=== PATIENT | male | born 1945 | race Caucasian/White ===

== ENCOUNTER 2018-07-05 05:24 | Inpatient (IN) | payer OTHER ==
[2018-06-21 13:03] LABS: URINE BILIRUBIN NEGATIVE (Negative); URINE BLOOD NEGATIVE (Negative); URINE CLARITY CLEAR; URINE COLOR YELLOW; URINE GLUCOSE-RANDOM* NEGATIVE (Negative); URINE KETONES NEGATIVE (Negative); URINE LEUKOCYTES-REFLEX NEGATIVE (Negative); URINE NITRITE-REFLEX NEGATIVE (Negative); URINE PROTEIN (DIPSTICK) NEGATIVE (Negative); URINE UROBILINOGEN 0.2 E.U./dl (0.2-1.0)
[2018-06-21 13:04] LABS: HEMOGLOBIN 16.7 gm/dL (14.0-18.0); MCH 33.2 pg (26.0-34.0); MCHC 34.9 g/dL (28.0-37.0); MCV 95.2 fL (80.0-100.0); RBC 5.04 mil/uL (4.50-6.00); RDW 12.8 % (10.5-14.5); WBC 8.2 thou/uL (4.0-11.0)
[2018-06-21 13:11] LABS: ALBUMIN 4.1 g/dL (3.4-5.0); POTASSIUM 5.3 mmol/L (3.5-5.1)
[2018-06-21 13:13] LABS: INR 1.1; PROTIME 11.8 Seconds (9.3-11.4)
[~2018-07-05] VITALS: Ht 188 cm; Wt 97.5 kg
--- NOTE | ~2018-07-05 | O ---
[facility] [place] [address] OPERATIVE REPORT Name: CHIRAG MURRAY Room #: 461-P [facility] IN M.R.#: [id number] Admission: 07/05/18 Attend Phys: Freddy Valentin MD Discharge: 07/06/18 Date of : 49 Report #: [id number] THIS REPORT FOR: //name// CC: Billie Trinikaris Freddy Valentin DATE OF SERVICE: 07/05/2018 PREOPERATIVE DIAGNOSIS: Left hip osteoarthritis. POSTOPERATIVE DIAGNOSIS: Left hip osteoarthritis. PROCEDURE: Left total hip arthroplasty. SURGEON: Freddy Valentin MD. CONCRETE SPREADER: None. ANESTHESIA: General endotracheal. IMPLANTS: [employer] size 15 high offset Synergy press fit stem, a size 58 R3 acetabular cup with one acetabular screw and a size 40+8 Oxinium head. ESTIMATED BLOOD LOSS: 50 mL. COMPLICATIONS: None. SPECIMENS: None. CONDITION UPON LEAVING THE OPERATING ROOM: Stable. INDICATIONS FOR PROCEDURE: The patient is a 72-year-old gentleman with severe left hip osteoarthritis. He has failed conservative measures for this and after discussion with him, he elected for left total hip arthroplasty. DESCRIPTION OF PROCEDURE: Risks, benefits, alternatives, complications were discussed in detail with the patient including but not limited to risk of anesthesia, risk of damage to nerves, arteries, blood vessels, risk for infection, bleeding, risk for continued hip pain, leg length discrepancy, instability and need for reoperation. Informed consent was obtained from the patient. The left hip was appropriately marked in the preoperative holding area. IV clindamycin was given for preoperative antibiotics. She was brought to the operating room and placed in supine position on operating room table. General anesthesia was induced without complication. She was then placed in the right lateral decubitus position with the left hip uppermost. Left hip and lower extremity were prepped and draped in normal sterile fashion. Timeout was [address] [address] OPERATIVE REPORT Name: CHIRAG MURRAY Alessandro Room #: 461-P [facility] IN [facility].#: [id number] Admission: 07/05/18 Attend Phys: Freddy Valentin MD Discharge: 07/06/18 Date of : 49 Report #: [id number] performed properly identifying the patient, procedure as well as the instrumentation and implants. All in the operating room were in agreement. Standard posterior approach to the hip was made with 10 blade through the skin. Dissection was taken down the fascia with Bovie cautery and Ordoñez elevator was used to clean off the fascia. Fresh #10 blade was used to make a fascial incision. This was taken proximally and distally with curved Velarde scissor. Charnley retractor was placed. Trochanteric bursa was taken down with Bovie cautery. Piriformis tendon was identified, tagged and taken down with Bovie. Short external rotators were also taken down with Bovie cautery. A 10 blade was then used to make a capsulotomy and capsule ends were tagged for later repair. Hip was dislocated and there was extensive osteoarthritic change of the femoral head. Femoral neck cut was made 1 cm proximal to lesser trochanter based on preoperative templating. The femoral head was removed. Deep acetabular retractors were placed and the labrum was removed sharply. Pulvinar was removed with Bovie cautery. Acetabulum was then sequentially reamed up to a size 58, at which point, there was excellent bleeding cancellous bone. This was trialed with a size 57 trial cup and found to have a good fit. A final size 58 R3 acetabular cup was then placed and seated. One acetabular screw was placed for backup fixation and a polyethylene liner for 40 head was placed. Attention was then turned to the femur. This was reamed and broached up to a size 15, at which point a size 15 broach was stable. This was trialed with a high offset neck and a 40+0 head. Hip was reduced, taken through range of motion, found to be stable, found to have a short leg length on the left compared to the right. It was felt this could be made up for with final implant. Hip was dislocated and the broach was removed and final size 15 high offset press-fit stem was placed. This was trialed with a 40+4 head and then a +8 head. The +8 head had equal leg length and good stability. Hip was dislocated one last time and a final size 40+8 Oxinium head was placed. Hip was reduced, taken through range of motion, found to be stable, found to have equal leg length. The joint was thoroughly irrigated with normal saline. Periarticular injection consisting of morphine, ropivacaine, epinephrine, Toradol placed around the hip joint capsule. A gram of vancomycin was placed deep in the joint. The capsule and piriformis were repaired with 0 FiberWire. Fascia was closed with 0 Vicryl, skin was closed with 2-0 Vicryl, 3-0 Monocryl. Dermabond and a KYLIE dressing was applied. The patient tolerated this procedure well and went to recovery room under care of anesthesia postoperatively. <ELECTRONICALLY SIGNED> By: Freddy Valentin MD 07/10/18 1610 [id number] Freddy Valentin MD /nt
[~2018-07-05 05:24] MED LIST: ASPIR 8181 MG PO; CLARITIN10 MG PO; LOPRESSOR50 PO; MOBIC7.5 MG PO; PRAVACHOL40 MG PO; TOPROL XL50 MG PO; VITAMIN B-121000 MCG PO; VITAMIN D1000 UNI1 PO
[2018-07-05 13:12] VITALS: BP 160/79
[2018-07-05 16:10] VITALS: BP 138/77
[2018-07-05 16:25] VITALS: BP 132/79
[2018-07-05 16:40] VITALS: BP 139/63
[2018-07-05 17:14] VITALS: BP 137/74
[2018-07-05 23:34] VITALS: BP 120/69
[2018-07-06 03:30] VITALS: BP 101/58
[2018-07-06 03:47] LABS: HEMATOCRIT 41.3 % (42.0-52.0); HEMOGLOBIN 14.2 gm/dL (14.0-18.0); MCH 32.5 pg (26.0-34.0); MCHC 34.4 g/dL (28.0-37.0); MCV 94.7 fL (80.0-100.0); RBC 4.36 mil/uL (4.50-6.00); RDW 12.5 % (10.5-14.5)
[2018-07-06 08:49] VITALS: BP 108/64
[2018-07-06 13:02] VITALS: BP 108/64
[2018-07-06 13:46] VITALS: BP 108/64
== END 2018-07-06 14:00 | disposition home or self-care (01) | DRG 470 ==
LOC: PRE 05:24 → 4W 05:25 → TBA 05:25 → PRE 09:11 → 4W 16:20
PROVIDERS: Orthopaedic Surgery
PROC: 0SRB06A Replacement of Left Hip Joint with Oxidized Zirconium on Polyethylene Synthetic Substitute, Uncemented, Open Approach (ICD-10-PCS; principal; 2018-07-05)
DX: M16.12 Unilateral primary osteoarthritis, left hip (principal); Z88.0 Allergy status to penicillin; Z28.21 Immunization not carried out because of patient refusal
CPT/HCPCS: 10047; 50010; 50101; 50382; 50414; 51771; 53000; 53078; 53368; 54118; 56460; 56524; 56527; 56528; 56530; 57095; 57103; 62110; 62900; 70005

== ENCOUNTER 2018-11-25 02:35 | Emergency (ER) | payer OTHER ==
[~2018-11-25] VITALS: Ht 188 cm; Wt 97.5 kg
[2018-11-25 03:00] LABS: BASOPHILS 1.1 % (0.0-2.0); EOSINOPHILS 1.6 % (0.0-3.0); HEMATOCRIT 46.2 % (42.0-52.0); HEMOGLOBIN 15.9 gm/dL (14.0-18.0); LYMPHOCYTES 20.5 % (24.0-44.0); MCH 31.6 pg (26.0-34.0); MCHC 34.3 g/dL (28.0-37.0); MCV 92.1 fL (80.0-100.0); MONOCYTES 4.9 % (1.0-8.0); PLATELET COUNT 218 thou/uL (150-400); POLYS 71.9 % (36.0-66.0); RBC 5.02 mil/uL (4.50-6.00); WBC 9.8 thou/uL (4.0-11.0)
[2018-11-25 03:07] LABS: CALCIUM 9.6 mg/dL (8.5-10.1); POTASSIUM 3.2 mmol/L (3.5-5.1)
[2018-11-25] MEDS ORDERED: ASPIR 8181 MG PO (03:08)
[2018-11-25 03:13] LABS: ALBUMIN 4.2 g/dL (3.4-5.0); TOTAL BILIRUBIN 0.5 mg/dL (<0.1-1.0); TOTAL PROTEIN 7.9 g/dL (6.4-8.2)
[2018-11-25 05:11] VITALS: BP 135/80
[2018-11-25 05:44] LABS: URINE BILIRUBIN NEGATIVE (Negative); URINE BLOOD NEGATIVE (Negative); URINE CLARITY CLEAR; URINE COLOR YELLOW; URINE GLUCOSE-RANDOM* NEGATIVE (Negative); URINE KETONES TRACE (Negative); URINE LEUKOCYTES-REFLEX NEGATIVE (Negative); URINE NITRITE-REFLEX NEGATIVE (Negative); URINE PROTEIN (DIPSTICK) NEGATIVE (Negative); URINE UROBILINOGEN 0.2 E.U./dl (0.2-1.0)
== END 2018-11-25 05:32 | disposition home or self-care (01) ==
LOC: ER 02:35
PROVIDERS: Emergency Medicine
DX: R10.33 Periumbilical pain (principal); R10.32 Left lower quadrant pain; R11.2 Nausea with vomiting, unspecified; I10 Essential (primary) hypertension; E78.5 Hyperlipidemia, unspecified; Z88.0 Allergy status to penicillin

== ENCOUNTER → 2020-01-31 | Outpatient (CLI) | payer OTHER | LOC: SJCVC 10:03 | PROVIDERS: ATTEND Internal Medicine Cardiovascular Disease | DX: R00.1 Bradycardia, unspecified (principal); I48.0 Paroxysmal atrial fibrillation; E78.00 Pure hypercholesterolemia, unspecified; M10.9 Gout, unspecified; I10 Essential (primary) hypertension; Z79.82 Long term (current) use of aspirin; Z79.899 Other long term (current) drug therapy; Z82.49 Family history of ischemic heart disease and other diseases of the circulatory system ==

== ENCOUNTER → 2020-11-12 | Outpatient (CLI) | payer OTHER | LOC: SJCVCIMAG 09:04 | PROVIDERS: ATTEND Internal Medicine Cardiovascular Disease | DX: I48.0 Paroxysmal atrial fibrillation (principal); R00.1 Bradycardia, unspecified; E78.5 Hyperlipidemia, unspecified; M10.9 Gout, unspecified; E78.00 Pure hypercholesterolemia, unspecified; I10 Essential (primary) hypertension; Z88.0 Allergy status to penicillin; Z72.89 Other problems related to lifestyle; Z79.82 Long term (current) use of aspirin; Z79.899 Other long term (current) drug therapy ==

== ENCOUNTER → 2021-09-23 | Outpatient (CLI) | payer OTHER | LOC: SJCVC 11:34 | PROVIDERS: ATTEND Internal Medicine Cardiovascular Disease | DX: I48.91 Unspecified atrial fibrillation (principal); E78.00 Pure hypercholesterolemia, unspecified; R00.2 Palpitations; Z82.49 Family history of ischemic heart disease and other diseases of the circulatory system; Z72.89 Other problems related to lifestyle; Z88.0 Allergy status to penicillin; Z79.82 Long term (current) use of aspirin; Z79.899 Other long term (current) drug therapy ==